=== PATIENT | male | born 1995 | race Caucasian/White ===

== ENCOUNTER 2019-01-26 13:49 | Emergency (ER) | payer SELFPAY ==
[2019-01-26] MEDS ORDERED: Cephalexin 500 MG Cap PO ONE (13:50)
[2019-01-26] MEDS ORDERED: Lidocaine 2% with EPINEPHrine 1:100,000 20 ML MDV INJECT ONE (13:56)
[2019-01-26] MEDS ORDERED: Bacitracin/Neomycin/Polymyxin B Oint 0.9 GM U/D Packet TOP ONE (13:57)
[2019-01-26] MEDS ORDERED: Lidocaine 1% with EPINEPHrine 1:100,000 20 ML MDV INJECT ONE (13:59)
[2019-01-26] MEDS ORDERED: Take Home: Cephalexin 500 MG Cap, 4 Cap Pack PO ONE (14:20)
--- NOTE | 2019-01-26 14:22 | EDM.PDOC ---
ED HPI GENERAL MEDICAL PROBLEM - General Chief Complaint: Laceration Stated Complaint: EYE LACERATION WHILE SLEDDING Time Seen by Provider: 01/26/19 13:50 Source of Information: Reports: Patient History Limitations: Reports: No Limitations - History of Present Illness INITIAL COMMENTS - FREE TEXT/NARRATIVE: Patient to the emergency department complaining of a laceration to the left eyelid area, the patient advised that he was being pulled behind a vehicle on a board acting as a sled when he slipped off and another sled struck him in the left eyelid area, there is no loss of consciousness there is no change in vision the patient does have a 5 cm laceration to the left upper eyelid area. Bleeding is controlled. The patient's tetanus shot is less than 5 years. The patient denies any loss of consciousness he denies any ear, nose, throat symptoms denies any unusual neck, back pain or stiffness denies any other symptoms at this point. 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 Denies: Fever, Chills HEENT: Reports: No Symptoms. Denies: Ear Pain, Eye Pain, Nose Pain Respiratory: Reports: No Symptoms Cardiovascular: Reports: No Symptoms GI/Abdominal: Reports: No Symptoms. Denies: Abdominal Pain, Nausea, Vomiting : Reports: No Symptoms Musculoskeletal: Reports: No Symptoms. Denies: Neck Pain, Back Pain Skin: Reports: Wound (Centimeter laceration to the left upper eyelid) Neurological: Reports: No Symptoms. Denies: Confusion, Dizziness, Headache, Seizure, Syncope, Trouble Speaking, Difficulty Walking, Weakness, Change in Speech, Gait Disturbance Psychiatric: Reports: No Symptoms ED EXAM, SKIN/RASH Exam: See Below Exam Limited By: No Limitations General Appearance: Alert, WD/WN, No Apparent Distress Eye Exam: Bilateral Eye: EOMI Ears: Normal External Exam, Normal Canal, Hearing Grossly Normal, Normal TMs Nose: Normal Inspection, Normal Mucosa Throat/Mouth: Normal Inspection, Normal Lips, Normal Voice, No Airway Compromise Head: Normocephalic Neck: Normal Inspection, Supple, Non-Tender, Full Range of Motion Respiratory/Chest: No Respiratory Distress, Lungs Clear, Normal Breath Sounds, Chest Non-Tender Cardiovascular: Normal Peripheral Pulses, Regular Rate, Rhythm, No Murmur Peripheral Pulses: 2+: Radial (L) GI/Abdominal: Soft, Non-Tender Back Exam: Normal Inspection, Full Range of Motion Extremities: Normal Inspection, Normal Range of Motion, Non-Tender, Normal Capillary Refill Neurological: Alert, Oriented, CN II-XII Intact, Normal Cognition, Normal Gait, No Motor/Sensory Deficits Psychiatric: Normal Affect, Normal Mood Skin: Warm, Dry, Normal Color. No: Intact Location, Skin: Face Associated features: Tenderness. No: Warmth ED SKIN PROCEDURES - Laceration/Wound Repair Left Face Appearance: Superficial, Linear Distal NVT: Neuro & Vascular Intact Anesthetic Type: Local Local Anesthesia - Lidocaine (Xylocaine): 2% with EPI Local Anesthetic Volume: 5cc Skin Prep: Sterile Drape, Other (Wound cleanser) Exploration/Debridement/Repair: Wound Explored, In a Bloodless Field, No Foreign Material Found Closed with: Sutures Lac/Wound length In cm: 5 Suture Size: 6-0 # of Sutures: 7 Suture Type: Nylon Tetanus Status Addressed: Yes (Is up-to-date) Complications: No Course - Vital Signs Text/Narrative:: The patient was evaluated in the emergency department the patient was advised need to suture the wound he was also advised of the risk and benefits including the risk of infection due to the mechanism of injury. However the wound was washed irrigated extensively there is no foreign body noted. The wound was sutured with six-point 0 nylon sutures #7 interrupted without any prongs. The patient did tolerate procedure well. The patient will be started on Keflex 500 mg 3 times a day for 10 days the patient will be advised to follow-up in a couple of days to have the wound rechecked he is advised that the sutures can come out in 7 to 10 days. The patient is also advised to apply Neosporin ointment to the wound 3 times a day. The patient's GCS is 4-5-6, this does not meet any trauma code protocol. Last Recorded V/S: Last Vital Signs Temp 36.6 C 01/26/19 13:52 Pulse 101 H 01/26/19 13:52 Resp 20 01/26/19 13:52 BP 120/53 L 01/26/19 13:52 Pulse Ox 98 01/26/19 13:52 - Orders/Labs/Meds Meds: Medications Discontinued Medications Generic Name Dose Route Start Last Admin Trade Name Freq PRN Reason Stop Dose Admin Cephalexin 2 packet 01/26/19 14:20 Take Home: Cephalexin 500 Mg, 4 Cap Pack PO 01/26/19 14:21 ONETIME ONE Lidocaine/Epinephrine 20 ml 01/26/19 13:56 01/26/19 14:02 Xylocaine 2% With Epinephrine 1:100,000 INJECT 01/26/19 13:57 Not Given ONETIME ONE Lidocaine/Epinephrine 20 ml 01/26/19 13:59 01/26/19 14:02 Xylocaine 1% With Epinephrine 1:100,000 INJECT 01/26/19 14:00 20 ml ONETIME ONE Administration Neomycin/Polymyxin/Bacitracin 1 each 01/26/19 13:57 01/26/19 14:02 Triple Antibiotic Oint TOP 01/26/19 13:58 1 each ONETIME ONE Administration Departure - Departure Time of Disposition: 14:17 Disposition: Home, Self-Care 01 Condition: Good Clinical Impression: Closed head injury Qualifiers: Encounter type: initial encounter Qualified Code(s): S09.90XA - Unspecified injury of head, initial encounter Laceration of left eyelid and periocular area Qualifiers: Encounter type: initial encounter Qualified Code(s): S01.112A - Laceration without foreign body of left eyelid and periocular area, initial encounter - Discharge Information *PRESCRIPTION DRUG MONITORING PROGRAM REVIEWED*: Not Applicable *COPY OF PRESCRIPTION DRUG MONITORING REPORT IN PATIENT LINDA: Not Applicable Prescriptions: Cephalexin [Keflex] 500 mg PO TID 10 Days #30 capsule Instructions: Laceration Care, Adult, Head Injury, Adult, [id number] Forms: ED Department Discharge Additional Instructions: keep the wound clean and dry apply a thin coat of neosporin ointment 3 x a day sutures out in 7 - 10 days keflex 500mg 3 x a day for 10 days - Problem List & Annotations (1) Closed head injury SNOMED Code(s): 138386502585 Code(s): S09.90XA - UNSPECIFIED INJURY OF HEAD, INITIAL ENCOUNTER Status: Acute Priority: High Qualifiers: Encounter type: initial encounter Qualified Code(s): S09.90XA - Unspecified injury of head, initial encounter (2) Laceration of left eyelid and periocular area SNOMED Code(s): 95166990 Code(s): S01.112A - LACERATION W/O FB OF LEFT EYELID AND PERIOCULAR AREA, INIT Status: Acute Priority: High Qualifiers: Encounter type: initial encounter Qualified Code(s): S01.112A - Laceration without foreign body of left eyelid and periocular area, initial encounter - Problem List Review Problem List Initiated/Reviewed/Updated: No - Assessment/Plan Plan: as above
== END 2019-01-26 14:43 | disposition home or self-care (01) ==
LOC: CC.ED 13:49
DX: S01.112A Laceration without foreign body of left eyelid and periocular area, initial encounter (principal); S09.90XA Unspecified injury of head, initial encounter; F17.210 Nicotine dependence, cigarettes, uncomplicated; W22.8XXA Striking against or struck by other objects, initial encounter
CPT/HCPCS: 12013; 99282; A9270-GY